=== PATIENT | female | born 1955 | race Caucasian/White ===

== ENCOUNTER → 2016-12-18 | Outpatient (CLI) | payer BC | LOC: KOH-I 15:30 | DX: R94.5 Abnormal results of liver function studies (principal); K76.0 Fatty (change of) liver, not elsewhere classified; R16.0 Hepatomegaly, not elsewhere classified; K80.20 Calculus of gallbladder without cholecystitis without obstruction | CPT/HCPCS: 76705 ==

== ENCOUNTER → 2020-11-28 | Outpatient (CLI) | payer OTHER ==
[~2020-11-28] MED LIST: AMLODIPINE BESYL5 MG PO; ASPIRIN EC81 MG PO; ATORVASTATIN CA20 MG PO; BISOPROLOL-HCT1 EAC2 PO; COZAAR 50MG TAB50 MG PO; PLAVIX 75 MG TA75 MG PO; PROTONIX 40 MG40 M1 PO
== END ==
LOC: US 14:00
DX: M79.605 Pain in left leg (principal); M71.20 Synovial cyst of popliteal space [Baker], unspecified knee; R22.42 Localized swelling, mass and lump, left lower limb
CPT/HCPCS: 93971

== ENCOUNTER → 2022-03-05 | Outpatient (CLI) | payer OTHER | LOC: RAD 14:08 | DX: M25.552 Pain in left hip (principal); M47.816 Spondylosis without myelopathy or radiculopathy, lumbar region | CPT/HCPCS: 72100; 73502 ==